=== PATIENT | female | born 1945 | race Caucasian/White ===

== ENCOUNTER 2018-09-21 19:02 | Emergency (ER) | payer BC, MEDICARE, OTHER ==
[~2018-09-21 19:02] MED LIST: Ibuprofen 800 MG Tab ONE
[2018-09-21 19:09] VITALS: BP 136/54
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
== END 2018-09-21 19:45 | disposition home or self-care (01) ==
LOC: LB.ED 19:02
DX: S29.012A Strain of muscle and tendon of back wall of thorax, initial encounter (principal); S16.1XXA Strain of muscle, fascia and tendon at neck level, initial encounter; S46.912A Strain of unspecified muscle, fascia and tendon at shoulder and upper arm level, left arm, initial encounter; S46.911A Strain of unspecified muscle, fascia and tendon at shoulder and upper arm level, right arm, initial encounter; Z88.5 Allergy status to narcotic agent; V47.5XXA Car driver injured in collision with fixed or stationary object in traffic accident, initial encounter
CPT/HCPCS: 99283; A9270

== ENCOUNTER 2018-09-29 08:04 | Emergency (ER) | payer OTHER, MEDICARE | END 2018-09-29 09:30 | disposition other institution (70) | LOC: LB.ED 08:04 | DX: Z13.9 Encounter for screening, unspecified (principal) ==

== ENCOUNTER → 2019-03-31 | Outpatient (CLI) | payer MEDICARE, OTHER ==
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
== END ==
LOC: LB.US 11:43
PROVIDERS: ATTEND Family Medicine
DX: R42 Dizziness and giddiness (principal); I65.23 Occlusion and stenosis of bilateral carotid arteries; V89.2XXA Person injured in unspecified motor-vehicle accident, traffic, initial encounter
CPT/HCPCS: 93880

== ENCOUNTER 2020-03-19 13:13 | Emergency (ER) | payer MEDICARE, OTHER ==
[2020-03-19 13:39] VITALS: BP 114/59; PULSE 97
[2020-03-19] MEDS ORDERED: Sodium Chloride 0.9% 500 ML IV SCH (14:30)
--- NOTE | 2020-03-19 14:42 | EDM.PDOC ---
ED HPI GENERAL MEDICAL PROBLEM - General Chief Complaint: General Stated Complaint: INCONTINENCE Time Seen by Provider: 03/19/20 13:45 Source of Information: Reports: Patient History Limitations: Reports: Other (dementia) - History of Present Illness INITIAL COMMENTS - FREE TEXT/NARRATIVE: 74 year old female presents to ED for increased incontinence. Negative UA at clinic this AM. PMH dementia (1 year ago) and family feels that patient is deterioriating rapidly cognitively. She has no complaints and is not sure why her family brought her in. She does admit to having intermittent diarrhea with a bout if bowel incontinence 3 days ago. Sylwia the patient's swduccde-va-qdh states the patient is much more forgetful and it is unclear if she has been eating. Improves with: Reports: None Worsens with: Reports: None Associated Symptoms: Reports: No Other Symptoms - Related Data Allergies Allergy/AdvReac Type Severity Reaction Status Date / Time donepezil Allergy Nausea and Verified 03/19/20 13:35 Vomiting codeine AdvReac Stomach Verified 03/19/20 13:35 Ache Home Meds: Home Meds Omeprazole 30 mg PO DAILY 09/21/18 [History] Cholecalciferol (Vitamin D3) [Vitamin D3] 2,000 unit PO DAILY #90 tablet [Rx] Cyanocobalamin (Vitamin B-12) [Vitamin B-12] 1,000 mcg PO DAILY #90 tablet 02/25/19 [Rx] Multivitamin [Multiple Vitamins] 1 each PO DAILY #90 tablet 02/25/19 [Rx] FLUoxetine HCl [Prozac] 20 mg PO DAILY 03/19/20 [History] Past Medical History HEENT History: Reports: Cataract Gastrointestinal History: Reports: Pancreatitis 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: Neurological History: Reports: Seizure Psychiatric History: Reports: Dementia Hematologic History: Reports: None Oncologic (Cancer) History: Reports: Breast - Infectious Disease History Infectious Disease History: Reports: Chicken Pox, Measles - Past Surgical History HEENT Surgical History: Reports: Cataract Surgery GI Surgical History: Reports: Colonoscopy, Other (See Below) Female Surgical History: Reports: Mastectomy Social & Family History - Family History Family Medical History: Noncontributory - Tobacco Use Years of Tobacco use: 40 Packs/Tins Daily: 1 - Caffeine Use Caffeine Use: Reports: Coffee - Recreational Drug Use Recreational Drug Use: No ED ROS GENERAL - Review of Systems Review Of Systems: See Below Constitutional: Reports: Decreased Appetite, Weight Loss HEENT: Reports: No Symptoms Respiratory: Reports: No Symptoms Cardiovascular: Reports: No Symptoms Endocrine: Reports: No Symptoms GI/Abdominal: Reports: Stool Incontinence (3 days ago) : Reports: Incontinence (ongoing) Musculoskeletal: Reports: No Symptoms Skin: Reports: No Symptoms Neurological: Reports: Confusion, Dizziness, Weakness (baseline for patient) Psychiatric: Reports: No Symptoms Hematologic/Lymphatic: Reports: No Symptoms Immunologic: Reports: No Symptoms ED EXAM, GENERAL - Physical Exam Exam: See Below Exam Limited By: No Limitations General Appearance: Alert, No Apparent Distress Ears: Normal External Exam Nose: Normal Inspection Throat/Mouth: Normal Inspection, Normal Lips, Normal Teeth, Normal Oropharynx, Normal Voice, No Airway Compromise Head: Atraumatic Neck: Normal Inspection, Full Range of Motion Respiratory/Chest: No Respiratory Distress, Lungs Clear, Normal Breath Sounds, No Accessory Muscle Use Cardiovascular: Normal Peripheral Pulses, No Edema, No JVD, No Murmur, Tachycardia Peripheral Pulses: 3+: Radial (L), Radial (R), Posterior Tibial (L), Posterior Tibial (R) GI/Abdominal: Non-Tender (Female) Exam: Deferred Rectal (Female) Exam: Deferred Back Exam: Full Range of Motion. No: CVA Tenderness (R), CVA Tenderness (L) Extremities: Normal Inspection, Normal Range of Motion, Non-Tender, No Pedal Edema, Normal Capillary Refill Neurological: Alert, Oriented (oriented at this time, answering all questions approiprately), CN II-XII Intact, Normal Reflexes, No Motor/Sensory Deficits Psychiatric: Normal Affect, Normal Mood Skin Exam: Warm, Dry, Intact, Normal Color Lymphatic: No Adenopathy Course - Vital Signs Last Recorded V/S: Last Vital Signs Temp 97 F 03/19/20 13:35 Pulse 97 03/19/20 13:35 Resp 18 03/19/20 13:35 BP 114/59 L 03/19/20 13:35 Pulse Ox 98 03/19/20 13:35 - Orders/Labs/Meds Orders: Active Orders 24 hr Category Date Time Status Chest 2V [CR] Stat Exams 03/19/20 14:42 Taken Sodium Chloride 0.9% [Normal Saline] 500 ml Med 03/19/20 14:30 Active IV .BOLUS Medication Orders Sodium Chloride (Normal Saline) 500 mls @ 999 mls/hr IV .BOLUS DAMON Last Admin: 03/19/20 14:37 Dose: 999 mls/hr Documented by: VLADIMIR Labs: Laboratory Tests 03/19/20 03/19/20 03/19/20 Range/Units 14:40 14:40 14:40 WBC 3.8 L D (4.0-11.0) K/uL RBC 3.73 L (3.80-5.80) M/uL Hgb 11.6 (11.5-16.5) g/dL Hct 35.7 L (37.0-47.0) % MCV 96 (76-96) fL MCH 31.1 (27.0-32.0) pg MCHC 32.5 (31.0-35.0) g/dL RDW 12.3 (11.0-16.0) % Plt Count 107 L (150-500) K/uL MPV 11.7 H (6.0-10.0) fL Neut % (Auto) 60.0 (45.0-70.0) % Lymph % (Auto) 27.3 (20.0-40.0) % Vigo % (Auto) 8.6 (3.0-10.0) % Eos % (Auto) 3.6 (1.0-5.0) % Baso % (Auto) 0.5 (0.0-0.5) % Neut # (Auto) 2.30 (2.00-7.50) K/uL Lymph # (Auto) 1.05 L (1.50-4.00) K/uL Vigo # (Auto) 0.33 (0.20-0.80) K/uL Eos # (Auto) 0.14 (0.04-0.40) K/uL Baso # (Auto) 0.02 (0.02-0.10) K/uL Sodium 143 (136-145) mmol/L Potassium 4.4 (3.5-5.1) mmol/L Chloride 106 (98-107) mmol/L Carbon Dioxide 25.6 (21.0-32.0) mmol/L Anion Gap 15.8 H (5.0-15.0) mmol/L BUN 14 D (8-26) mg/dL Creatinine 0.79 (0.55-1.02) mg/dL Est Cr Clr Drug Dosing 34.70 mL/min Estimated GFR (MDRD) > 60 (>60) MLS/MIN BUN/Creatinine Ratio 17.7 (6-25) Glucose 100 (74-100) mg/dL Lactic Acid (0.4-2.0) mmol/L Calcium 9.4 (8.5-10.1) mg/dL Total Bilirubin 0.5 D (0.0-1.0) mg/dL AST 46 H (15-37) U/L ALT 61 (12-78) U/L Alkaline Phosphatase 92 (46-116) U/L Total Protein 6.5 (6.4-8.2) g/dL Albumin 3.5 (3.4-5.0) g/dL Globulin 3.0 (2.2-4.2) g/dL Albumin/Globulin Ratio 1.2 (0.8-2.0) Lipase 286 (73-393) U/L 03/19/20 Range/Units 14:40 WBC (4.0-11.0) K/uL RBC (3.80-5.80) M/uL Hgb (11.5-16.5) g/dL Hct (37.0-47.0) % MCV (76-96) fL MCH (27.0-32.0) pg MCHC (31.0-35.0) g/dL RDW (11.0-16.0) % Plt Count (150-500) K/uL MPV (6.0-10.0) fL Neut % (Auto) (45.0-70.0) % Lymph % (Auto) (20.0-40.0) % Vigo % (Auto) (3.0-10.0) % Eos % (Auto) (1.0-5.0) % Baso % (Auto) (0.0-0.5) % Neut # (Auto) (2.00-7.50) K/uL Lymph # (Auto) (1.50-4.00) K/uL Vigo # (Auto) (0.20-0.80) K/uL Eos # (Auto) (0.04-0.40) K/uL Baso # (Auto) (0.02-0.10) K/uL Sodium (136-145) mmol/L Potassium (3.5-5.1) mmol/L Chloride (98-107) mmol/L Carbon Dioxide (21.0-32.0) mmol/L Anion Gap (5.0-15.0) mmol/L BUN (8-26) mg/dL Creatinine (0.55-1.02) mg/dL Est Cr Clr Drug Dosing mL/min Estimated GFR (MDRD) (>60) MLS/MIN BUN/Creatinine Ratio (6-25) Glucose (74-100) mg/dL Lactic Acid 1.1 (0.4-2.0) mmol/L Calcium (8.5-10.1) mg/dL Total Bilirubin (0.0-1.0) mg/dL AST (15-37) U/L ALT (12-78) U/L Alkaline Phosphatase (46-116) U/L Total Protein (6.4-8.2) g/dL Albumin (3.4-5.0) g/dL Globulin (2.2-4.2) g/dL Albumin/Globulin Ratio (0.8-2.0) Lipase (73-393) U/L Meds: Medications Generic Name Dose Route Start Last Admin Trade Name Rony PRN Reason Stop Dose Admin Sodium Chloride 500 mls @ 999 mls/hr 03/19/20 14:30 03/19/20 14:37 Normal Saline IV 999 mls/hr .BOLUS DAMON Administration Departure - Departure Time of Disposition: 15:55 Disposition: DC/Tfer to [facility] Condition: Fair Clinical Impression: Weight loss, unintentional, Incontinence of urine in female, Abnormal thyroid stimulating hormone (TSH) level - Discharge Information *PRESCRIPTION DRUG MONITORING PROGRAM REVIEWED*: Not Applicable *COPY OF PRESCRIPTION DRUG MONITORING REPORT IN PATIENT LEE: Not Applicable Instructions: Urinary Incontinence Referrals: PCP,None [Primary Care Provider] - Forms: ED Department Discharge Additional Instructions: Call the clinic tomorrow if you still havent heard from the Thyroid Specialist. See Sandy PARSONS in clinic on Thursday as planned. Return to ED for any increased or new concerning symptoms. Sepsis Event Note (ED) - Evaluation Sepsis Screening Result: No Definite Risk - Focused Exam Vital Signs: Vital Signs Temp Pulse Resp BP Pulse Ox 03/19/20 13:35 97 F 97 18 114/59 L 98 - Problem List Review Problem List Initiated/Reviewed/Updated: Yes - My Orders Last 24 Hours: My Active Orders 03/19/20 14:30 Sodium Chloride 0.9% [Normal Saline] 500 ml IV .BOLUS 03/19/20 14:42 Chest 2V [CR] Stat - Assessment/Plan Last 24 Hours: My Active Orders 03/19/20 14:30 Sodium Chloride 0.9% [Normal Saline] 500 ml IV .BOLUS 03/19/20 14:42 Chest 2V [CR] Stat Assessment:: Spoke with Sandy PARSONS in the clinic, she has an appointment with patient Thursday for Thyroid follow up, also she put in an urgent referral for endo for the patient's abmormal thyroid tests. Plan: Discussed with patient and Sylwia, patient will be discharged home. Endo should be calling the patient and Sylwia to schedule appointment. Keep Thursday's appointment with Sandy CASEY.
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
== END 2020-03-19 15:55 | disposition home or self-care (01) ==
LOC: LB.ED 13:13
DX: R32 Unspecified urinary incontinence (principal); R63.4 Abnormal weight loss; R94.6 Abnormal results of thyroid function studies; Z79.899 Other long term (current) drug therapy; Z88.5 Allergy status to narcotic agent; Z88.7 Allergy status to serum and vaccine
CPT/HCPCS: 36415; 71046; 80053; 83605; 83690; 85025; 99284-25; J7040

== ENCOUNTER 2020-09-23 16:04 | Emergency (ER) | payer MEDICARE ==
[2020-09-23 17:09] VITALS: BP 98/47; PULSE 66
[2020-09-23] MEDS: fentaNYL 100 MCG/2 ML SDV IVPUSH PRN ×2 (17:30→18:51)
--- NOTE | 2020-09-23 17:49 | EDM.PDOC ---
ED HPI GENERAL MEDICAL PROBLEM - General Chief Complaint: General Stated Complaint: FELL YESTERDAY Time Seen by Provider: 09/23/20 16:30 Source of Information: Reports: Patient, Family, RN - History of Present Illness INITIAL COMMENTS - FREE TEXT/NARRATIVE: 74 year old female with PMH dementia, thyroid, depression/anxiety presents to ED with left hip pain after a fall down a hill yesterday. She has abrasions to right hand, left shoulder/elbow, bruising to left forehead, and a large bruise on her left hip. Denies LOC, CP, neck pain, abdominal pain, TAYLOR, fever, urinary symptoms. Fall was witnessed by her family and patient was able to walk after the fall. Her pjgmxorq-fr-xkq is very concerned about the patient because she lives at home alone. - Related Data Allergies Allergy/AdvReac Type Severity Reaction Status Date / Time donepezil Allergy Nausea and Verified 03/19/20 13:35 Vomiting codeine AdvReac Stomach Verified 03/19/20 13:35 Ache Home Meds: Home Meds Cholecalciferol (Vitamin D3) [Vitamin D3] 2,000 unit PO DAILY #90 tablet 02/25/19 [Rx] Cyanocobalamin (Vitamin B-12) [Vitamin B-12] 1,000 mcg PO DAILY #90 tablet 02/25/19 [Rx] FLUoxetine HCl [Prozac] 20 mg PO DAILY 03/19/20 [History] Mirtazapine [Remeron] 15 mg PO DAILY 09/23/20 [History] methIMAzole [Methimazole] 5 mg PO BID 09/23/20 [History] Past Medical History HEENT History: Reports: Cataract Respiratory History: Reports: COPD Gastrointestinal History: Reports: Pancreatitis 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: Musculoskeletal History: Reports: Osteoarthritis Neurological History: Reports: Seizure Other Neuro History: dementia Psychiatric History: Reports: Dementia Endocrine/Metabolic History: Reports: Hypothyroidism Hematologic History: Reports: None Oncologic (Cancer) History: Reports: Breast - Infectious Disease History Infectious Disease History: Reports: Chicken Pox, Measles - Past Surgical History HEENT Surgical History: Reports: Cataract Surgery GI Surgical History: Reports: Colonoscopy, Other (See Below) Other GI Surgeries/Procedures: Ulcer at beginning of small intestine Female Surgical History: Reports: Mastectomy Other Musculoskeletal Surgeries/Procedures:: hip pain Oncologic Surgical History: Reports: Mastectomy Social & Family History - Family History Family Medical History: No Pertinent Family History - Caffeine Use Caffeine Use: Reports: Coffee ED ROS GENERAL - Review of Systems Review Of Systems: See Below Constitutional: Reports: No Symptoms HEENT: Reports: No Symptoms Respiratory: Reports: No Symptoms Cardiovascular: Reports: No Symptoms Endocrine: Reports: No Symptoms GI/Abdominal: Reports: No Symptoms : Reports: No Symptoms Musculoskeletal: Reports: No Symptoms Skin: Reports: Bruising, Wound Neurological: Reports: No Symptoms Psychiatric: Reports: No Symptoms Hematologic/Lymphatic: Reports: No Symptoms Immunologic: Reports: No Symptoms ED EXAM, GENERAL - Physical Exam Exam: See Below Exam Limited By: No Limitations General Appearance: Alert, No Apparent Distress Ears: Normal External Exam, Hearing Grossly Normal Nose: Normal Inspection Throat/Mouth: Normal Inspection, Normal Lips, Normal Teeth, Normal Gums, Normal Oropharynx, Normal Voice, No Airway Compromise Head: Atraumatic Neck: Normal Inspection, Non-Tender, Full Range of Motion Respiratory/Chest: No Respiratory Distress, Lungs Clear, Normal Breath Sounds, No Accessory Muscle Use, Chest Non-Tender Cardiovascular: Normal Peripheral Pulses, Regular Rate, Rhythm, No Edema, No Murmur Peripheral Pulses: 3+: Carotid (L), Carotid (R), Radial (L), Radial (R), Dorsalis Pedis (L), Dorsalis Pedis (R) GI/Abdominal: Normal Bowel Sounds, Soft, Non-Tender Back Exam: Normal Inspection, Full Range of Motion Extremities: Normal Inspection, Normal Range of Motion, No Pedal Edema, Normal Capillary Refill, Leg Pain Neurological: Alert, Oriented, Normal Cognition, Normal Gait, No Motor/Sensory Deficits Psychiatric: Normal Affect, Normal Mood Skin Exam: Warm, Dry (abrasions on left shoulder/elbow and right hand, bruising ro left hip), Normal Color, No Rash, Wound/Incision Lymphatic: No Adenopathy Course - Vital Signs Last Recorded V/S: Last Vital Signs Temp 98.0 F 09/23/20 16:30 Pulse 66 09/23/20 16:30 Resp 20 09/23/20 16:30 BP 98/47 L 09/23/20 16:30 Pulse Ox 96 09/23/20 16:30 - Orders/Labs/Meds Orders: Active Orders 24 hr Category Date Time Status Hip Min 2V or 3V w Pelvis Lt [CR] Stat Exams 09/23/20 16:36 Taken fentaNYL [Sublimaze] Med 09/23/20 16:36 Active 25 mcg IVPUSH Q5M PRN Medication Orders Fentanyl (Fentanyl 100 Mcg/2 Ml Sdv) 25 mcg IVPUSH Q5M PRN PRN Reason: Pain Meds: Medications Generic Name Dose Route Start Last Admin Trade Name Freq PRN Reason Stop Dose Admin Fentanyl 25 mcg 09/23/20 16:36 Fentanyl 100 Mcg/2 Ml Sdv IVPUSH Q5M PRN Pain Departure - Departure Time of Disposition: 17:48 Disposition: Home, Self-Care 01 Clinical Impression: Left hip pain Fall Qualifiers: Encounter type: initial encounter Qualified Code(s): W19.XXXA - Unspecified fall, initial encounter - Discharge Information *PRESCRIPTION DRUG MONITORING PROGRAM REVIEWED*: Not Applicable *COPY OF PRESCRIPTION DRUG MONITORING REPORT IN PATIENT LEE: Not Applicable Instructions: Hip Pain Referrals: PCP,None [Primary Care Provider] - Additional Instructions: Take 400-600 mg ibuprofen with food every 6 hours and take 650 of tylenol every 6 hours, the combination should work well for the pain. Return to the ED for any increased or new concerning symptoms. We will arrange physical therapy to work you with the walker. Follow up with PMD as needed. Sepsis Event Note (ED) - Evaluation Sepsis Screening Result: No Definite Risk - Focused Exam Vital Signs: Vital Signs Temp Pulse Resp BP Pulse Ox 09/23/20 16:30 98.0 F 66 20 98/47 L 96 - My Orders Last 24 Hours: My Active Orders 09/23/20 16:36 Hip Min 2V or 3V w Pelvis Lt [CR] Stat fentaNYL [Sublimaze] 25 mcg IVPUSH Q5M PRN - Assessment/Plan Last 24 Hours: My Active Orders 09/23/20 16:36 Hip Min 2V or 3V w Pelvis Lt [CR] Stat fentaNYL [Sublimaze] 25 mcg IVPUSH Q5M PRN Plan: Patient is able to getup and walk with decreased pain, she wants to go home. Spoke with Sylwia and I will touch base with Obie the social sciences research scientist to see if there are any resources to help Nathan at home. We sent the patient home with a walker to borrow after she demonstrated ability to use it. A RX for a walker was also sent home. Patient and family verbalized understanding of DC and all questions were answered prior to DC. 1. social sciences research scientist consult tomorrow. 2. RX for walker 3. Order for PT to work with patient and walker
--- NOTE | 2020-09-24 07:26 | CR ---
DATE OF SERVICE: 09/23/20 CLINICAL DATA: Fall yesterday. PELVIS AND LEFT HIP: Comparison is made to a prior exam dated 06/09/12. There are mild osteoarthritic changes of both hip joint. There are degenerative changes involving the SI joints. No acute abnormalities. No lytic or blastic bone lesions. [id number] [facility]
== END 2020-09-23 18:15 | disposition home or self-care (01) ==
LOC: LB.ED 16:04
DX: S70.02XA Contusion of left hip, initial encounter (principal); S40.212A Abrasion of left shoulder, initial encounter; S50.312A Abrasion of left elbow, initial encounter; S60.511A Abrasion of right hand, initial encounter; Z88.8 Allergy status to other drugs, medicaments and biological substances; Z88.5 Allergy status to narcotic agent; Z79.899 Other long term (current) drug therapy; F03.90 Unspecified dementia, unspecified severity, without behavioral disturbance, psychotic disturbance, mood disturbance, and anxiety; J44.9 Chronic obstructive pulmonary disease, unspecified; W17.81XA Fall down embankment (hill), initial encounter
CPT/HCPCS: 73502-LT; 96374; 99283-25; J3010

== ENCOUNTER 2020-09-25 14:28 | Inpatient (IN) | payer MEDICARE ==
[2020-09-25] MEDS ORDERED: Tuberculin, PPD 5 Units/0.1 ML 1 ML MDV IDERM ONE (18:07)
[2020-09-25] MEDS ORDERED: Alendronate 70 MG Tab PO SCH (18:15)
[2020-09-25] MEDS: Acetaminophen 325 MG Tab PO PRN (19:54)
[2020-09-25] MEDS: Mirtazapine 15 MG Tab PO SCH (19:54)
[2020-09-25] MEDS: traMADol 50 MG Tab PO PRN (19:56)
[2020-09-26] MEDS: Acetaminophen 325 MG Tab PO PRN ×3 (01:24→17:52)
[2020-09-26] MEDS: traMADol 50 MG Tab PO PRN ×3 (01:27→15:11)
[2020-09-26] MEDS: Calcium Carbonate 600 MG Tab PO SCH (07:32)
[2020-09-26] MEDS: Ibuprofen 600 MG Tab PO PRN ×2 (07:32→15:12)
[2020-09-26] MEDS: Fish Oil/Omega-3 Fatty Acids 1 Gm Cap PO SCH (07:36)
[2020-09-26] MEDS: Cholecalciferol (Vitamin D3) 25 MCG Tab PO SCH (07:37)
[2020-09-26] MEDS: FLUoxetine 20 MG Cap PO SCH (07:42)
[2020-09-26] MEDS: METHIMAZOLE 5 MG PO SCH ×2 (13:42→20:02)
[2020-09-26] MEDS: Mirtazapine 15 MG Tab PO SCH (20:02)
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
[2020-09-27] MEDS: Ibuprofen 600 MG Tab PO PRN ×3 (02:52→20:22)
[2020-09-27] MEDS: Calcium Carbonate 600 MG Tab PO SCH (08:53)
[2020-09-27] MEDS: Cholecalciferol (Vitamin D3) 25 MCG Tab PO SCH (08:53)
[2020-09-27] MEDS: Fish Oil/Omega-3 Fatty Acids 1 Gm Cap PO SCH (08:53)
[2020-09-27] MEDS: METHIMAZOLE 5 MG PO SCH ×2 (08:54→20:23)
[2020-09-27] MEDS: Acetaminophen 325 MG Tab PO PRN ×2 (08:54→14:30)
[2020-09-27] MEDS: FLUoxetine 20 MG Cap PO SCH (08:57)
[2020-09-27] MEDS: Mirtazapine 15 MG Tab PO SCH (20:23)
[2020-09-27] MEDS: traMADol 50 MG Tab PO PRN (23:40)
[2020-09-28] MEDS: Cholecalciferol (Vitamin D3) 25 MCG Tab PO SCH (07:57)
[2020-09-28] MEDS: Docusate Sodium 100 MG Cap PO PRN (07:57)
[2020-09-28] MEDS: METHIMAZOLE 5 MG PO SCH ×2 (07:57→19:26)
[2020-09-28] MEDS: Acetaminophen 325 MG Tab PO PRN ×2 (07:58→13:40)
[2020-09-28] MEDS: Fish Oil/Omega-3 Fatty Acids 1 Gm Cap PO SCH (07:58)
[2020-09-28] MEDS: FLUoxetine 20 MG Cap PO SCH (07:58)
[2020-09-28] MEDS: Calcium Carbonate 600 MG Tab PO SCH (07:58)
[2020-09-28] MEDS: traMADol 50 MG Tab PO PRN (08:50)
[2020-09-28] MEDS: Ibuprofen 600 MG Tab PO PRN (13:39)
[2020-09-28] MEDS: Polyvinyl Alcohol 1.4% Ophth Soln 15 ML Bottle EYEBOTH PRN (13:51)
[2020-09-28] MEDS: Mirtazapine 15 MG Tab PO SCH (19:27)
[2020-09-29] MEDS: Cholecalciferol (Vitamin D3) 25 MCG Tab PO SCH (08:02)
[2020-09-29] MEDS: METHIMAZOLE 5 MG PO SCH ×2 (08:02→20:22)
[2020-09-29] MEDS: Calcium Carbonate 600 MG Tab PO SCH (08:02)
[2020-09-29] MEDS: Fish Oil/Omega-3 Fatty Acids 1 Gm Cap PO SCH (08:03)
[2020-09-29] MEDS: FLUoxetine 20 MG Cap PO SCH (08:03)
[2020-09-29] MEDS: Ibuprofen 600 MG Tab PO PRN ×2 (08:03→20:23)
[2020-09-29] MEDS: Mirtazapine 15 MG Tab PO SCH (20:22)
[2020-09-29] MEDS: Docusate Sodium 100 MG Cap PO PRN (20:23)
[2020-09-30] MEDS: Calcium Carbonate 600 MG Tab PO SCH (08:10)
[2020-09-30] MEDS: Cholecalciferol (Vitamin D3) 25 MCG Tab PO SCH (08:10)
[2020-09-30] MEDS: FLUoxetine 20 MG Cap PO SCH (08:10)
[2020-09-30] MEDS: METHIMAZOLE 5 MG PO SCH ×2 (08:10→19:42)
[2020-09-30] MEDS: Fish Oil/Omega-3 Fatty Acids 1 Gm Cap PO SCH (08:10)
[2020-09-30] MEDS: Acetaminophen 325 MG Tab PO PRN (13:38)
[2020-09-30] MEDS: Nicotine Polacrilex 4 MG Gum CHEW PRN (13:39)
[2020-09-30] MEDS: Ibuprofen 600 MG Tab PO PRN (19:43)
[2020-09-30] MEDS: traMADol 50 MG Tab PO PRN (19:44)
[2020-09-30] MEDS: Mirtazapine 15 MG Tab PO SCH (19:44)
[2020-10-01] MEDS: Fish Oil/Omega-3 Fatty Acids 1 Gm Cap PO SCH (07:41)
[2020-10-01] MEDS: FLUoxetine 20 MG Cap PO SCH (07:42)
[2020-10-01] MEDS: Cholecalciferol (Vitamin D3) 25 MCG Tab PO SCH (07:42)
[2020-10-01] MEDS: Calcium Carbonate 600 MG Tab PO SCH (07:42)
[2020-10-01] MEDS: METHIMAZOLE 5 MG PO SCH ×2 (07:42→19:44)
[2020-10-01] MEDS: traMADol 50 MG Tab PO PRN ×2 (07:54→15:12)
--- NOTE | 2020-10-01 13:19 | PCM.PN ---
- General Info Date of Service: 10/01/20 Admission Dx/Problem (Free Text): 75 yo female with dementia was admitted for pain control and ambulation assistance after falling. She has been working with PT/OT. Per the patient, she feels she is ready to go home. She reports her pain to be well controlled with her current regimen. However, there are concerns from PT/OT about the patient's safety and ability to care for herself at home. Please refer to therapy notes. Functional Status: Reports: Pain Controlled, Ambulating - Review of Systems General: Reports: No Symptoms HEENT: Reports: No Symptoms Pulmonary: Reports: No Symptoms Cardiovascular: Reports: No Symptoms Gastrointestinal: Reports: No Symptoms Genitourinary: Reports: No Symptoms Musculoskeletal: Reports: Other (left hip pain with flexion but much improved per the patient) Skin: Reports: No Symptoms Neurological: Reports: Other (dysphagia, coughing when drinking thin liquids over the past 2 days) Psychiatric: Reports: No Symptoms - Patient Data Vitals - Most Recent: Last Vital Signs Temp 98.1 F 09/30/20 08:55 Pulse 72 09/30/20 08:55 Resp 18 09/30/20 08:55 BP 126/66 09/30/20 08:55 Pulse Ox 98 09/30/20 08:55 Weight - Most Recent: 106 lb Med Orders - Current: Current Medications Acetaminophen (Acetaminophen 325 Mg Tab) 650 mg PO Q4H PRN PRN Reason: Pain (Mild 1-3)/fever Last Admin: 09/30/20 13:38 Dose: 650 mg Documented by: Alendronate Sodium (Alendronate 70 Mg Tab) 70 mg PO Tu@0700 [facility] Artificial Tears (Polyvinyl Alcohol 1.4% Ophth Soln 15 Ml Bottle) 0 - 0.05 ml EYEBOTH Q1H PRN PRN Reason: DRY EYES Last Admin: 09/28/20 13:51 Dose: 1 drop Documented by: Calcium Carbonate/Glycine (Calcium Carbonate 600 Mg Tab) 1,200 mg PO DAILY [facility] Last Admin: 10/01/20 07:42 Dose: 1,200 mg Documented by: Cholecalciferol (Cholecalciferol (Vitamin D3) 25 Mcg Tab) 50 mcg PO DAILY [facility] Last Admin: 10/01/20 07:42 Dose: 50 mcg Documented by: Docusate Sodium (Docusate Sodium 100 Mg Cap) 100 mg PO BID PRN PRN Reason: Constipation Last Admin: 09/29/20 20:23 Dose: 100 mg Documented by: Fish Oil (Fish Oil/[place]-3 Fatty Acids 1 Gm Cap) 1 gm PO DAILY [facility] Last Admin: 10/01/20 07:41 Dose: 1 gm Documented by: Fluoxetine HCl (Fluoxetine 20 Mg Cap) 20 mg PO DAILY [facility] Last Admin: 10/01/20 07:42 Dose: 20 mg Documented by: Ibuprofen (Ibuprofen 600 Mg Tab) 600 mg PO Q6H PRN PRN Reason: Pain (mild 1-3) Last Admin: 09/30/20 19:43 Dose: 600 mg Documented by: Mirtazapine (Mirtazapine 15 Mg Tab) 7.5 mg PO BEDTIME [facility] Last Admin: 09/30/20 19:44 Dose: 7.5 mg Documented by: Nicotine Polacrilex (Nicotine Polacrilex 4 Mg Gum) 4 mg CHEW Q4H PRN PRN Reason: Withdrawal Symptoms Last Admin: 09/30/20 13:39 Dose: 4 mg Documented by: (Methimazole [ Methimazole] 5 Mg Tablet) 5 mg PO BID [facility] Last Admin: 10/01/20 07:42 Dose: 5 mg Documented by: Tramadol HCl (Tramadol 50 Mg Tab) 50 mg PO Q6H PRN PRN Reason: Pain (moderate 4-6) Last Admin: 10/01/20 07:54 Dose: 50 mg Documented by: Discontinued Medications Alendronate Sodium (Alendronate 70 Mg Tab) 70 mg PO WEEKLY [facility] Tuberculin PPD (Tuberculin, Ppd 5 Units/0.1 Ml 1 Ml Mdv) 5 unit IDERM ONETIME ONE Stop: 09/25/20 18:08 Last Admin: 09/26/20 13:28 Dose: 5 unit Documented by: - Exam General: Alert, Oriented, Cooperative, No Acute Distress HEENT: Pupils Equal, Pupils Reactive, EOMI, Mucous Membr. Moist/[place] Neck: Supple Lungs: Clear to Auscultation, Normal Respiratory Effort Cardiovascular: Regular Rate, Regular Rhythm GI/Abdominal Exam: Normal Bowel Sounds, Soft, Non-Tender, No Organomegaly, No Distention Extremities: Other (Left hip ecchymotic, healing. Swelling improved. ROM of left hip intact but pain is noted with flexion. ) Peripheral Pulses: 2+: Dorsalis Pedis (L), Dorsalis Pedis (R) Skin: Warm, Dry, Other (Ecchymosis of left hip as previously mentioned. Small healing (yellow) bruise on left forehead from previous fall) Neurological: No New Focal Deficit Psy/Mental Status: Alert, Normal Mood (Responding to questions appropriately. Alert to person place and time.) Sepsis Event Note - Evaluation Sepsis Screening Result: No Definite Risk - Problem List & Annotations (1) Left hip pain SNOMED Code(s): 16204053 Code(s): M25.552 - PAIN IN LEFT HIP Status: Acute Priority: High Current Visit: Yes Annotation/Comment:: Continue PT/OT. Patient would benefit from an additional 3-5 days for appropriate placement. She would benefit from a care home stay if placement can be arranged. (2) Dysphagia SNOMED Code(s): 26883988, 747717540 Code(s): R13.10 - DYSPHAGIA, UNSPECIFIED Status: Acute Current Visit: Yes Onset Date: ~10/01/20 Qualifiers: Dysphagia type: unspecified Qualified Code(s): R13.10 - Dysphagia, unspecified Annotation/Comment:: patient reports difficulty swallowing and coughing after drinking thin liquids as of 1-[address] eval ordered. (3) Abnormal thyroid stimulating hormone (TSH) level SNOMED Code(s): 691291113 Code(s): R79.89 - OTHER SPECIFIED ABNORMAL FINDINGS OF BLOOD CHEMISTRY Status: Acute Current Visit: No Annotation/Comment:: TSH ordered - Problem List Review Problem List Initiated/Reviewed/Updated: Yes - My Orders Last 24 Hours: My Active Orders 10/01/20 08:40 CARGO AGENT Evaluation and Treatment [CONS] Routine 10/02/20 07:00 Alendronate [Fosamax] 70 mg PO Tu@0700
[2020-10-01] MEDS: Nicotine Polacrilex 4 MG Gum CHEW PRN (13:41)
[2020-10-01] MEDS: Mirtazapine 15 MG Tab PO SCH (19:44)
[2020-10-01] MEDS: Polyvinyl Alcohol 1.4% Ophth Soln 15 ML Bottle EYEBOTH PRN (19:45)
[2020-10-02] MEDS: Ibuprofen 600 MG Tab PO PRN ×2 (05:01→20:35)
[2020-10-02] MEDS ORDERED: Alendronate 70 MG Tab PO SCH (07:00)
[2020-10-02] MEDS: Calcium Carbonate 600 MG Tab PO SCH (07:51)
[2020-10-02] MEDS: FLUoxetine 20 MG Cap PO SCH (07:51)
[2020-10-02] MEDS: Cholecalciferol (Vitamin D3) 25 MCG Tab PO SCH (07:51)
[2020-10-02] MEDS: Fish Oil/Omega-3 Fatty Acids 1 Gm Cap PO SCH (07:51)
[2020-10-02] MEDS: METHIMAZOLE 5 MG PO SCH ×2 (07:52→20:34)
[2020-10-02] MEDS: Nicotine Polacrilex 4 MG Gum CHEW PRN (14:12)
[2020-10-02] MEDS: traMADol 50 MG Tab PO PRN ×2 (15:30)
[2020-10-02] MEDS: Mirtazapine 15 MG Tab PO SCH (20:35)
[2020-10-03] MEDS: Calcium Carbonate 600 MG Tab PO SCH (07:15)
[2020-10-03] MEDS: FLUoxetine 20 MG Cap PO SCH (07:15)
[2020-10-03] MEDS: Fish Oil/Omega-3 Fatty Acids 1 Gm Cap PO SCH (07:15)
[2020-10-03] MEDS: Ibuprofen 600 MG Tab PO PRN (07:16)
[2020-10-03] MEDS: Cholecalciferol (Vitamin D3) 25 MCG Tab PO SCH (07:16)
[2020-10-03] MEDS: METHIMAZOLE 5 MG PO SCH ×2 (07:17→20:17)
[2020-10-03] MEDS ORDERED: Methocarbamol 500 MG Tab PO PRN (08:04)
[2020-10-03] MEDS: Nicotine Polacrilex 4 MG Gum CHEW PRN (09:30)
[2020-10-03] MEDS: Acetaminophen 325 MG Tab PO PRN ×2 (09:50→20:19)
[2020-10-03] MEDS: Ibuprofen 600 MG Tab PO SCH ×3 (13:51→23:44)
[2020-10-03] MEDS: Mirtazapine 15 MG Tab PO SCH (20:16)
[2020-10-04] MEDS: Ibuprofen 600 MG Tab PO SCH ×3 (00:11→12:45)
[2020-10-04] MEDS: Fish Oil/Omega-3 Fatty Acids 1 Gm Cap PO SCH (07:49)
[2020-10-04] MEDS: FLUoxetine 20 MG Cap PO SCH (07:49)
[2020-10-04] MEDS: Cholecalciferol (Vitamin D3) 25 MCG Tab PO SCH (07:49)
[2020-10-04] MEDS: Calcium Carbonate 600 MG Tab PO SCH (07:49)
[2020-10-04] MEDS: METHIMAZOLE 5 MG PO SCH (07:49)
[2020-10-04 08:16] VITALS: BP 128/59; PULSE 60
--- NOTE | 2020-10-04 10:45 | PCM.DCSUM1 ---
Discharge Summary - Hospital Course Free Text/Narrative:: 75 yo female was admitted to swing bed for pain management after falling. She has been participating in PT/OT and has been found to be unable to return to her home safely. Dysphagia was identified during the stay and the patient has been referred to ST. Please refer to therapy progress notes. The patient has a history of dementia and has had observed episodes of confusion that inhibit her ability to even dress herself properly. The patient was originally opposed to any stays at a nursing facility but has now changed her mind and verbalized that she is looking forward to the transition. She has verbalized that she is aware of her confusion and understands the benefit of her transitioning to residential care rather than back to independently living at her home. Diagnosis: Stroke: No - Discharge Data Discharge Date: 10/04/20 Discharge Disposition: DC/Tfer to [facility] Condition: Good - Referral to Home Health Primary Care Physician: PCP None - Discharge Diagnosis/Problem(s) (1) Left hip pain SNOMED Code(s): 18660057 ICD Code: M25.552 - PAIN IN LEFT HIP Status: Acute Priority: High Current Visit: Yes Problem Details: Continue PT/OT. Patient would benefit from an additional 3-5 days for appropriate placement. She would benefit from a intermediate stay if placement can be arranged. (2) Dysphagia SNOMED Code(s): 29350941, 444435849 ICD Code: R13.10 - DYSPHAGIA, UNSPECIFIED Status: Acute Current Visit: Yes Onset Date: ~10/01/20 Problem Details: patient reports difficulty swallowing and coughing after drinking thin liquids as of 1-[address] eval ordered. Qualifiers: Dysphagia type: unspecified Qualified Code(s): R13.10 - Dysphagia, unspecified (3) Abnormal thyroid stimulating hormone (TSH) level SNOMED Code(s): 899209879 ICD Code: R79.89 - OTHER SPECIFIED ABNORMAL FINDINGS OF BLOOD CHEMISTRY Status: Acute Current Visit: No Problem Details: TSH ordered - Patient Summary/Data Consults: Consultations 09/25/20 15:23 Consult to Case Management/Technical Marketing Consultant [CONS] Routine Comment: Physician Instructions: Service(s) to be Consulted: Technical Marketing Consultant Reason for Consult: Home safety and nutrition concerns OT Evaluation and Treatment [CONS] Routine Please Evaluate and Treat. OT Reason for Consult: pain, unsteady gait following fall This query below is only for informational purposes and is not editable. PT Evaluation and Treatment [CONS] Routine Please Evaluate and Treat. PT Reason for Consult: pain, unsteady gait following fall This query below is only for informational purposes and is not editable. 10/01/20 08:40 PRINTING MACHINIST Evaluation and Treatment [CONS] Routine Please Evaluate and Treat PRINTING MACHINIST Reason for Consult: Dysphagia This query below is only for informational purposes and is not editable. Admission Diagnosis/Problem: Pain of left hip - Patient Instructions Diet: Regular Diet as Tolerated Activity: Apply Ice, As Tolerated Activity, Other: up with 2 wheeled walker Notify Provider of: Increased Pain - Discharge Plan *PRESCRIPTION DRUG MONITORING PROGRAM REVIEWED*: Not Applicable *COPY OF PRESCRIPTION DRUG MONITORING REPORT IN PATIENT LEE: Not Applicable Tobacco Cessation Medication: Prescription Given Home Medications: Home Meds Cholecalciferol (Vitamin D3) [Vitamin D3] 2,000 unit PO DAILY #90 tablet 02/25/19 [Rx] FLUoxetine HCl [Prozac] 20 mg PO DAILY 03/19/20 [History] Mirtazapine [Remeron] 7.5 mg PO DAILY 09/23/20 [History] methIMAzole [Methimazole] 5 mg PO BID 09/23/20 [History] Alendronate Sodium [Fosamax] 70 mg PO WEEKLY 09/25/20 [History] Calcium Carbonate [Calcium] 2 tab PO DAILY 09/25/20 [History] [place]-3 Fatty Acids/Fish Oil [Fish Oil 1,000 mg Capsule] 1 cap PO DAILY 09/25/20 [History] Nicotine Polacrilex [Nicorette] 1 ha PO ASDIRECTED PRN MDD 20 lozenges per day 09/27/20 [History] Oxygen Therapy Mode: Room Air - Discharge Summary/Plan Comment DC Time >30 min.: Yes Discharge Summary/Plan Comment: The patient is not safe to return home. She would benefit from termite technician care due to confusion secondary to dementia. She is requiring chcf including assistance with ADLs, meal preparation and medication management. Discussed the risks, benefits with the patient. She is agreeable to the plan of care. Her family has been agreeable with this plan for some time now but the patient wasn't ready until now. - General Info Date of Service: 10/04/20 Admission Dx/Problem (Free Text: pain management Functional Status: Reports: Pain Controlled, Other (up with a 2 wheeled walker and assist) - Review of Systems General: Reports: No Symptoms HEENT: Reports: No Symptoms Pulmonary: Reports: No Symptoms Cardiovascular: Reports: No Symptoms Gastrointestinal: Reports: Difficulty Swallowing Genitourinary: Reports: No Symptoms Musculoskeletal: Reports: Joint Pain (left hip pain, decreased ROM) Skin: Reports: Bruising (left hip, healing. Left forehead, healing) Neurological: Reports: No Symptoms Psychiatric: Reports: Confusion - Patient Data Vitals - Most Recent: Last Vital Signs Temp 97.3 F 10/04/20 08:15 Pulse 60 10/04/20 08:15 Resp 18 10/04/20 08:15 BP 128/59 L 10/04/20 08:15 Pulse Ox 97 10/04/20 08:15 Weight - Most Recent: 108 lb 8 oz Med Orders - Current: Current Medications Acetaminophen (Acetaminophen 325 Mg Tab) 650 mg PO Q4H PRN PRN Reason: Pain (Mild 1-3)/fever Last Admin: 10/03/20 20:19 Dose: 650 mg Documented by: Alendronate Sodium (Alendronate 70 Mg Tab) 70 mg PO Tu@0700 [facility] Last Admin: 10/02/20 06:25 Dose: 70 mg Documented by: Artificial Tears (Polyvinyl Alcohol 1.4% Ophth Soln 15 Ml Bottle) 0 - 0.05 ml EYEBOTH Q1H PRN PRN Reason: DRY EYES Last Admin: 10/01/20 19:45 Dose: 1 drop Documented by: Calcium Carbonate/Glycine (Calcium Carbonate 600 Mg Tab) 1,200 mg PO DAILY [facility] Last Admin: 10/04/20 07:49 Dose: 1,200 mg Documented by: Cholecalciferol (Cholecalciferol (Vitamin D3) 25 Mcg Tab) 50 mcg PO DAILY [facility] Last Admin: 10/04/20 07:49 Dose: 50 mcg Documented by: Docusate Sodium (Docusate Sodium 100 Mg Cap) 100 mg PO BID PRN PRN Reason: Constipation Last Admin: 09/29/20 20:23 Dose: 100 mg Documented by: Fish Oil (Fish Oil/[place]-3 Fatty Acids 1 Gm Cap) 1 gm PO DAILY [facility] Last Admin: 10/04/20 07:49 Dose: 1 gm Documented by: Fluoxetine HCl (Fluoxetine 20 Mg Cap) 20 mg PO DAILY [facility] Last Admin: 10/04/20 07:49 Dose: 20 mg Documented by: Ibuprofen (Ibuprofen 600 Mg Tab) 600 mg PO Q6H [facility] Last Admin: 10/04/20 07:49 Dose: 600 mg Documented by: Methocarbamol (Methocarbamol 500 Mg Tab) 500 mg PO Q8H PRN PRN Reason: Spasms Last Admin: 10/03/20 20:16 Dose: 500 mg Documented by: Mirtazapine (Mirtazapine 15 Mg Tab) 7.5 mg PO BEDTIME [facility] Last Admin: 10/03/20 20:16 Dose: 7.5 mg Documented by: Nicotine Polacrilex (Nicotine Polacrilex 4 Mg Gum) 4 mg CHEW Q4H PRN PRN Reason: Withdrawal Symptoms Last Admin: 10/03/20 09:30 Dose: 4 mg Documented by: (Methimazole [ Methimazole] 5 Mg Tablet) 5 mg PO BID [facility] Last Admin: 10/04/20 07:49 Dose: 5 mg Documented by: Discontinued Medications Alendronate Sodium (Alendronate 70 Mg Tab) 70 mg PO WEEKLY [facility] Ibuprofen (Ibuprofen 600 Mg Tab) 600 mg PO Q6H PRN PRN Reason: Pain (mild 1-3) Last Admin: 10/03/20 07:16 Dose: 600 mg Documented by: Ibuprofen (Ibuprofen 600 Mg Tab) 600 mg PO Q6H [facility] Stop: 10/10/20 10:00 Last Admin: 10/03/20 23:44 Dose: Not Given Documented by: Tramadol HCl (Tramadol 50 Mg Tab) 50 mg PO Q6H PRN PRN Reason: Pain (moderate 4-6) Last Admin: 10/02/20 15:30 Dose: 50 mg Documented by: Tuberculin PPD (Tuberculin, Ppd 5 Units/0.1 Ml 1 Ml Mdv) 5 unit IDERM ONETIME ONE Stop: 09/25/20 18:08 Last Admin: 09/26/20 13:28 Dose: 5 unit Documented by: - Exam General: Reports: Alert, Cooperative, No Acute Distress HEENT: Reports: Pupils Equal, Pupils Reactive, EOMI, Mucous Membr. Moist/[place] Neck: Reports: Supple Lungs: Reports: Clear to Auscultation, Normal Respiratory Effort Cardiovascular: Reports: Regular Rate, Regular Rhythm GI/Abdominal Exam: Normal Bowel Sounds, Soft, Non-Tender, No Organomegaly, No Distention, No Abnormal Bruit, No Mass, Pelvis Stable Extremities: No Pedal Edema, Normal Capillary Refill Skin: Reports: Warm, Dry, Intact, Ecchymosis (healing bruises on the left hip and left forehead) Neurological: Reports: No New Focal Deficit Psy/Mental Status: Reports: Alert, Normal Affect, Normal Mood *Q Meaningful Use (DIS) - VTE *Q VTE Mechanical Contraindications *Q: At Risk for Falls
== END 2020-10-04 14:00 | DRG 556 ==
LOC: LB.MS 14:28 → UNDOADMIN 14:28 → LB.MS 15:23
PROVIDERS: ADMIT Registered Nurse; ATTEND Registered Nurse
DX: M25.552 Pain in left hip (principal); R13.10 Dysphagia, unspecified; R79.89 Other specified abnormal findings of blood chemistry; F03.90 Unspecified dementia, unspecified severity, without behavioral disturbance, psychotic disturbance, mood disturbance, and anxiety; Z79.899 Other long term (current) drug therapy; F17.200 Nicotine dependence, unspecified, uncomplicated; M25.659 Stiffness of unspecified hip, not elsewhere classified; Z20.822 Contact with and (suspected) exposure to COVID-19; M54.5 Low back pain; Z88.5 Allergy status to narcotic agent; Z88.8 Allergy status to other drugs, medicaments and biological substances; Z90.49 Acquired absence of other specified parts of digestive tract; Z98.51 Tubal ligation status
CPT/HCPCS: 36415; 84443; 86580; 87070; 92526-GN; 92610-GN; 97110-GP; 97116-GP; 97161-GP; 97164-GP; 97165-GO; 97530-GO; 97530-GP; 97535-GO; A9270-GY; U0002

== ENCOUNTER 2024-10-12 18:16 | Emergency (ER) | payer MEDICARE, MEDICAID ==
[2024-10-12] MEDS: Sodium Chloride 0.9% 500 ML IV ONE (18:49)
[2024-10-12 19:09] LABS: BASOPHILS ABSOLUTE AUTO 0.02 K/uL (0.02-0.10); BASOPHILS PERCENT AUTO 0.1 % (0.0-0.5); EOSINOPHILS ABSOLUTE AUTO 0.02 K/uL (0.04-0.40); EOSINOPHILS PERCENT AUTO 0.1 % (1.0-5.0); HEMATOCRIT 40.2 % (37.0-47.0); HEMOGLOBIN 13.3 g/dL (11.5-16.5); LYMPHOCYTES ABSOLUTE AUTO 0.82 K/uL (1.50-4.00); LYMPHOCYTES PERCENT AUTO 4.7 % (20.0-40.0); MEAN CORPUSCULAR HEMOGLOBIN 31.8 pg (27.0-32.0); MEAN CORPUSCULAR HGB CONC 33.1 g/dL (31.0-35.0); MEAN CORPUSCULAR VOLUME 96 fL (76-96); MEAN PLATELET VOLUME 11.9 fL (6.0-10.0); MONOCYTES ABSOLUTE AUTO 0.94 K/uL (0.20-0.80); MONOCYTES PERCENT AUTO 5.4 % (3.0-10.0); NEUTROPHILS ABSOLUTE AUTO 15.65 K/uL (2.00-7.50); NEUTROPHILS PERCENT AUTO 89.7 % (45.0-70.0); PLATELET COUNT,PLT 149 K/uL (150-500); RED BLOOD CELL COUNT 4.18 M/uL (3.80-5.80); RED CELL DISTRIBUTION WIDTH 12.5 % (11.0-16.0); WHITE BLOOD CELL COUNT,WBC 17.5 K/uL (4.0-11.0)
[2024-10-12 19:33] LABS: APPEARANCE,URINE TURBID (CLEAR); COLOR,URINE YELLOW; GLUCOSE,URINE NEGATIVE (NEGATIVE); PROTEIN,URINE NEGATIVE (NEGATIVE)
[2024-10-12 19:34] LABS: AMORPHOUS SEDIMENT,URINE MODERATE /HPF; BILIRUBIN,URINE NEGATIVE (NEGATIVE); KETONES,URINE TRACE mg/dL (NEGATIVE); LEUKOCYTE ESTERASE,URINE TRACE (NEGATIVE); NITRITE,URINE NEGATIVE (NEGATIVE); OCCULT BLOOD,URINE TRACE-INTACT (NEGATIVE); RBC,URINE 0-5 /HPF; SQUAMOUS EPITHELIAL CELLS,UR OCCASIONAL /HPF
[2024-10-12 19:54] LABS: A/G RATIO 0.9 (0.8-2.0); ALBUMIN 3.2 g/dL (3.4-5.0); ANION GAP 11.6 mmol/L (5.0-15.0); BUN/CREATININE RATIO 21.3 (6-25); CALCIUM 8.7 mg/dL (8.5-10.1); CARBON DIOXIDE,CO2 27.6 mmol/L (21.0-32.0); CREATININE 0.94 mg/dL (0.55-1.02); EST CRCL DRUG DOSING (CG) 33.71 mL/min; POTASSIUM,K 4.2 mmol/L (3.5-5.1); PROTEIN TOTAL,TP 6.6 g/dL (6.4-8.2)
[2024-10-12] MEDS: cefTRIAXone 1 GM Vial IM ONE (20:16)
[2024-10-12 20:49] VITALS: BP 119/66; PULSE 100
== END 2024-10-12 20:35 ==
LOC: LB.ED 18:16
DX: R53.1 Weakness (principal); Z88.8 Allergy status to other drugs, medicaments and biological substances; Z79.899 Other long term (current) drug therapy
CPT/HCPCS: 36415; 71045; 80053; 81001; 83605; 83880; 85025; 96360; 96372; 99285; J0696; J7040; 99284